=== PATIENT | female | born 1970 | race Caucasian/White ===

== ENCOUNTER 2018-02-28 07:53 | Day surgery (SDC) | payer OTHER ==
[~2018-02-28] VITALS: Ht 170.2 cm; Wt 72.7 kg
[~2018-02-28 07:53] MED LIST: BUPIVACAINE 0.25% ONE; ELAVIL PO; EPINEPHRINE 1 MG/ML, 1ML ONE; VITAMIN D PO
[2018-02-28] MEDS ORDERED: FENTANYL PF 250 MCG/5ML ONE (07:55)
[2018-02-28] MEDS ORDERED: MIDAZOLAM 1 MG/ML, 2ML ONE (07:55)
[2018-02-28] MEDS ORDERED: CEFAZOLIN 1,000 MG ONE (08:01)
[2018-02-28] MEDS ORDERED: GLYCOPYRROLATE 0.2MG/1ML, 5ML ONE (08:01)
[2018-02-28] MEDS ORDERED: ONDANSETRON 2MG/ML, 2ML ONE (08:01)
[2018-02-28] MEDS ORDERED: DEXAMETHASONE 4 MG/ML, 1ML ONE (08:01)
[2018-02-28] MEDS ORDERED: ROCURONIUM 10MG/ML,5ML ONE (08:01)
[2018-02-28] MEDS ORDERED: PROPOFOL 10 MG/ML, 20ML ONE (08:01)
[2018-02-28] MEDS ORDERED: NEOSTIGMINE 1 MG/ML, 10ML ONE (08:01)
[2018-02-28 08:45] LABS: HCG UR SG 1.024 (1.003-1.030)
[2018-02-28 08:55] VITALS: BP 119/73
[2018-02-28] MEDS ORDERED: AMIT10TA PO (08:55)
[2018-02-28] MEDS ORDERED: LACTATED RINGERS 1,000 ML IV SCH (09:00)
[2018-02-28] MEDS ORDERED: ZOLP-413 PO (09:00)
[2018-02-28] MEDS ORDERED: SCOPOLAMINE PATCH, 1.5MG PATCH.TD72 TD ONE (09:30)
[2018-02-28] MEDS ORDERED: ACETAMINOPHEN 500 MG TABLET PO ONE (09:30)
[2018-02-28] MEDS ORDERED: GABAPENTIN 300 MG CAPSULE PO ONE (09:30)
[2018-02-28] MEDS ORDERED: NEOMY/POLYMYXIN B GU IRR. 1 ML IRRIG ONE (09:57)
[2018-02-28] MEDS ORDERED: BUPIVACAINE 0.25% ONE (09:57)
[2018-02-28] MEDS ORDERED: THROMBIN 20,000 UNIT VIAL TP ONE (09:58)
[2018-02-28] MEDS ORDERED: MORPHINE SULFATE 4 MG/ML, 1ML IVPush PRN (10:00)
[2018-02-28] MEDS ORDERED: HYDROmorphone 2 MG/ML, 1ML IVPush PRN (10:00)
[2018-02-28] MEDS ORDERED: LABETALOL 5MG/ML, 20ML IV PRN (10:00)
[2018-02-28] MEDS ORDERED: hydrALAzine 20 MG/ML, 1ML IV PRN (10:00)
[2018-02-28] MEDS ORDERED: ONDANSETRON ODT 8 MG PO PRN (10:00)
[2018-02-28] MEDS ORDERED: MEPERIDINE/PF 25MG/0.5ML IVPush PRN (10:00)
[2018-02-28] MEDS ORDERED: FENTANYL PF 100 MCG/2ML IV PRN (10:00)
[2018-02-28] MEDS ORDERED: PROMETHAZINE 25 MG/ML, 1ML IV PRN (10:00)
[2018-02-28] MEDS ORDERED: PROMETHAZINE 25 MG SUPP PR PRN (10:00)
[2018-02-28] MEDS ORDERED: PROMETHAZINE 12.5 MG SUPP PR PRN (10:00)
[2018-02-28] MEDS ORDERED: PROMETHAZINE 25 MG/ML, 1ML IM PRN ×2 (10:00)
[2018-02-28] MEDS ORDERED: HALOPERIDOL 5 MG/ML IV PRN (10:00)
[2018-02-28] MEDS ORDERED: ONDANSETRON 2MG/ML, 2ML IV PRN (10:00)
[2018-02-28] MEDS ORDERED: OXYcodone 5 MG/5 ML ORAL.SOL UDC PO PRN (10:00)
[2018-02-28] MEDS ORDERED: PROPOFOL 50 ML ONE ×2 (10:02→10:45)
[2018-02-28] MEDS ORDERED: KETOROLAC 30 MG/1 ML ONE (10:32)
[2018-02-28] MEDS ORDERED: FLUORESCEIN SODIUM 500 MG/5 ML ONE (10:56)
[2018-02-28] MEDS ORDERED: OXYcodone 5 MG/5 ML ORAL.SOL UDC ONE (11:42)
[2018-02-28] MEDS ORDERED: IBUPROFEN 600 MG TABLET ONE (16:13)
== END 2018-02-28 18:20 | disposition home or self-care (01) ==
LOC: OUT 07:53
PROVIDERS: ATTEND Obstetrics & Gynecology
DX: N92.0 Excessive and frequent menstruation with regular cycle (principal); N39.3 Stress incontinence (female) (male); I10 Essential (primary) hypertension; I47.1 Supraventricular tachycardia; Z88.1 Allergy status to other antibiotic agents; Z95.0 Presence of cardiac pacemaker
CPT/HCPCS: 36415; 57288; 58563; 81025; 86850; 86900; 93005; C1771; J0171; J0690; J1100; J1885; J2250; J2405; J2704; J3010; J3490; J7120; Q0162; J2710